=== PATIENT | male | born 1955 | race Caucasian/White ===

== ENCOUNTER 2023-01-11 05:29 | Outpatient (CLI) | payer MEDICARE, MEDICAID ==
[~2023-01-11] VITALS: Ht 167.7 cm; Wt 50.9 kg
[2023-01-11] MEDS ORDERED: DOCU100C37 PO (09:42)
[2023-01-11] MEDS ORDERED: LEVO25TA2 PO (09:42)
[2023-01-11] MEDS ORDERED: ACET325T49 PO (09:44)
[2023-01-11] MEDS ORDERED: MICO5POW6 MC (11:35)
[2023-01-11] MEDS ORDERED: POLY17PO6 PO (11:35)
[2023-01-11] MEDS ORDERED: NEOM1OIN19 TP (11:35)
== END 2023-01-11 09:49 | disposition home or self-care (01) ==
LOC: PREOP 05:29
PROVIDERS: ATTEND Specialist
DX: Z01.818 Encounter for other preprocedural examination (principal)